=== PATIENT | female | born 1960 | race Caucasian/White ===

== ENCOUNTER 2022-07-13 11:05 | Day surgery (SDC) | payer OTHER ==
[~2022-07-13] VITALS: Ht 160 cm; Wt 108.5 kg
[2022-07-13] VITALS (8 sets, daily range): BP systolic 96–138; BP diastolic 47–76
[~2022-07-13 11:05] MED LIST: MULT-1085 PO; OXYC-145 PO; cefazolin 2gm/D5W 100mL 100 ML IV ONE; famotidine 20mg tablet PO ONE; ringers solution, lacted 1,000 ML IV SCH; tranexamic acid 650mg tablet PO ONE; vancomycin 1,500 MG in NS 300ml IV soln IV ONE
--- NOTE | 2022-07-13 11:20 | NUR ---
CSM: THIS PATIENT WAS NOTABLE TO COME IN FOR PREOP, SHE WAS AN ADD ON. WHEN SHE ARRIVED WE GAVE HER A BROCHURE EXPLAINING THE PROCEDURE. PULSES WERE PRESENT AND MARKED. EDUCATED PATIENT ON THE USE OF THE ON Q PUMP. EDUCATED PATIENT ON THE USE OF THE INCENTIVE SPIROMETER AND ITS IMPORTANCE.
--- NOTE | 2022-07-13 12:00 | NUR ---
PATIENT IS ALLERGIC TO CHLORHEXIDINE, NOT PREP WAS DONE ON THE SHOULDER. PLACED IV WITH NO ISSUES AND STARTED VANCO. EDUCATED PATIENT ON THE SIGNS AND SYMPTOMS OF VANCO.
[2022-07-13 12:17] LABS: BASOPHILS % (AUTO) 0.7 % (0-1); EOSINOPHILS # (AUTO) 0.1 X10'3 (0-0.9); EOSINOPHILS % (AUTO) 2.3 % (0-6); LYMPHOCYTES # (AUTO) 1.7 X10'3 (1.1-4.8); LYMPHOCYTES % (AUTO) 27.5 % (21-51); MEAN CORPUSCULAR HEMOGLOBIN 31.1 PG (27.0-31.0); MEAN CORPUSCULAR HGB CONC 34.2 g/dL (33.0-36.5); MEAN CORPUSCULAR VOLUME 91.2 FL (78-98); MEAN PLATELET VOLUME 7.5 FL (7.4-10.4); MONOCYTES # (AUTO) 0.3 X10'3 (0-0.9); NEUTROPHILS # (AUTO) 4.1 X10'3 (1.8-7.7); NEUTROPHILS % (AUTO) 64.5 % (42-75); PRE OP HEMATOCRIT 35.9 % (35.0-45.0); PRE OP HEMOGLOBIN 12.3 g/dL (12.0-16.0); PRE OP PLATELET COUNT 348 X10'3 (140-440); RED BLOOD COUNT 3.94 X10'6 (4.20-5.60); RED CELL DISTRIBUTION WIDTH 13.7 % (11.5-14.5)
[2022-07-13 12:31] LABS: ALBUMIN 3.7 G/DL (3.4-5.0); ALBUMIN/GLOBULIN RATIO 1.1 (1.1-1.5); ALKALINE PHOSPHATASE 104 IU/L (46-116); BLOOD UREA NITROGEN 11 MG/DL (7-18); BUN/CREATININE RATIO 16.4 (10.0-20.0); CALCIUM 9.2 MG/DL (8.5-10.1); CHLORIDE 105 MMOL/L (99-107); CREATININE 0.67 MG/DL (0.40-0.90); PRE OP ALT 23 U/L (30-65); PRE OP ANION GAP 7 (8-16); PRE OP AST 16 U/L (10-37); PRE OP BILIRUB, TOTAL 0.4 MG/DL (0.0-1.0); PRE OP GLUCOSE 103 MG/DL (70-104); PRE OP POTASSIUM 3.8 MMOL/L (3.4-5.1); PRE OP SODIUM 140 MMOL/L (135-145); TOTAL CARBON DIOXIDE 28.3 MMOL/L (24-32); eGFR 90 ML/MIN
--- NOTE | 2022-07-13 13:15 | NUR ---
PATIENT COMPLAINED OF EXCESS ITCHING DUE TO THE VANCO. STOPPED VANCO AND CALLED THE SURGEON, AND OBTAINED AN ORDER FOR BENADRYL AND RESTARTED VANCO AT A SLOWER RATE. MONITORED VANCO THROUGHOUT THE REST OF HER ORDERED DOSE. NO FURTHER ISSUES.
[2022-07-13] MEDS ORDERED: diphenhydrAMINE 25mg capsule PO STA (13:18)
[2022-07-13] MEDS ORDERED: diphenhydrAMINE 50 mg/ml inj IV PRN (13:25)
[2022-07-13] MEDS ORDERED: ROPIVAcaine 0.5% (5mg/ml) 30ml vial ONE ×2 (14:37→15:08)
[2022-07-13] MEDS ORDERED: ketorolac trometh. 30mg/ml inj. ONE (14:37)
[2022-07-13] MEDS ORDERED: fentaNYL/PF 50MCG/1 ML 2ML syringe ONE ×2 (15:06→17:47)
[2022-07-13] MEDS ORDERED: midazolam 1 mg/ML 2ml injection ONE (15:07)
[2022-07-13] MEDS ORDERED: propofol inj 20 ML IV ONE (15:12)
[2022-07-13] MEDS ORDERED: LIDOcaine 2% (20mg/ml) 5ml vial ONE (15:12)
[2022-07-13] MEDS ORDERED: ondansetron/PF 4mg/2ml inj IV PRN ×2 (15:20→18:35)
[2022-07-13] MEDS ORDERED: ringers solution, lacted 1,000 ML IV SCH (15:20)
[2022-07-13] MEDS ORDERED: fentaNYL/PF 50MCG/1 ML 2ML syringe IV PRN ×2 (15:20)
[2022-07-13] MEDS ORDERED: hydrALAZINE 20mg/ml inj. IV PRN (15:20)
[2022-07-13] MEDS ORDERED: morphine 4 MG/ML inj SYRINge IV PRN (15:20)
[2022-07-13] MEDS ORDERED: morphine 2 MG/ML inj. syringe IV PRN (15:20)
[2022-07-13] MEDS ORDERED: labetalol 20mg/4ml (5mg/ml) syringe IV PRN (15:20)
[2022-07-13] MEDS ORDERED: ROPIVAcaine 0.2% (10 MG/5 ML) BOLUS INJECTION INTERSCALE PRN (15:25)
[2022-07-13] MEDS ORDERED: ROPIVAcaine 0.2%/PF PUMP/bolus 545 ML INTERSCALE SCH (15:25)
[2022-07-13] MEDS ORDERED: sevoflurane 250ml liquid IH ONE (15:55)
[2022-07-13] MEDS ORDERED: dexamethasone sod phosphate 10mg/ml inj ONE (15:55)
[2022-07-13] MEDS ORDERED: ondansetron/PF 4mg/2ml inj ONE (16:37)
[2022-07-13] MEDS ORDERED: ROPIVAcaine 0.5% (5mg/ml) 30ml vial IJ ONE (17:00)
[2022-07-13] MEDS ORDERED: ketorolac trometh. 30mg/ml inj. IM ONE (18:14)
--- NOTE | 2022-07-13 18:28 | NUR ---
+ Received from OR via [facility] , accompanied by Anesthesiologist BINDU and report given by Anesthesiolgist. PATIENT WITH 20G PIV IN LEFT UE RUNNING LR AT 100. PATIENT RIGHT SHOULDER DRESSING IS CDI. SLING ON AND IN PLACE. + RADIAL PULSE PRESENT. DENIES PAIN AT THIS TIME. SCDS DONNED BILATERALLY. ON Q CONNECTED UPON ARRIVAL. + RADIAL PULSE PRESENT. Addendum: 07/13/22 at 1843 by Jose J Grande RN, RN Amended: Links added.
[2022-07-13] MEDS ORDERED: oxyCODONE IR 5mg (immed. release) tablet PO PRN ×2 (18:35)
[2022-07-13] MEDS ORDERED: bisacodyl 10mg suppository rectal RC PRN (18:35)
[2022-07-13] MEDS ORDERED: acetaminophen 325mg tablet PO PRN (18:35)
[2022-07-13] MEDS ORDERED: HYDROmorphone inj. 0.5 MG/0.5 ML DISP.SYRIN IV PRN (18:35)
[2022-07-13] MEDS ORDERED: naloxone 0.4 mg/ml inj IV PRN (18:35)
[2022-07-13] MEDS ORDERED: magnesium hydroxide 30ml (MOM) UD suspension PO PRN (18:35)
[2022-07-13] MEDS ORDERED: diphenhydrAMINE 25mg capsule PO PRN ×2 (18:35)
[2022-07-13] MEDS ORDERED: HYDROmorphone 1 mg/ml syringe IV PRN (18:35)
--- NOTE | 2022-07-13 19:28 | NUR ---
REPORT GIVEN AND ALL QUESTIONS ANSWERED. PATIENT TRANSFERRED TO SURG FLOOR. LABELED BELONGINGS PRESENT WITH SPOUSE AND DELIVERED TO ROOM. RN PRESENT ALL CRITERIA FOR TRANSFER BACK TO THE FLOOR HAS BEEN ACHIEVED. VSS. PAIN AT A TOLERABLE LEVEL. BED LOW, CALL LIGHT PRESENT AND 2 RAILS DOWN. RN AWARE THAT PATIENT HAS ARRIVED. TO ACCEPT CARE OF PATIENT. Addendum: 07/13/22 at 1941 by Jose J Grande RN RN Amended: Links added.
[2022-07-13] MEDS ORDERED: sennosides 8.6mg tablet PO SCH (21:00)
[2022-07-13] MEDS: potassium cl 20mEq in 1/2 NS 1,000 ML IV SCH (22:23)
[2022-07-13] MEDS: acetaminophen 325mg tablet PO SCH (22:25)
[2022-07-13] MEDS: ceFAZolin/D5W- 1GM premix 50 ML IV SCH (23:59)
[2022-07-14] MEDS: acetaminophen 325mg tablet PO SCH ×2 (02:25→08:34)
--- NOTE | 2022-07-14 06:26 | NUR ---
Problems reprioritized. Patient report given, questions answered & plan of care reviewed with HOLLAND Macdonald.
[2022-07-14 06:43] LABS: BASOPHILS % (AUTO) 0.2 % (0-1); EOSINOPHILS % (AUTO) 0 % (0-6); HEMATOCRIT 29.4 % (35.0-45.0); LYMPHOCYTES # (AUTO) 0.9 X10'3 (1.1-4.8); LYMPHOCYTES % (AUTO) 9.5 % (21-51); MEAN CORPUSCULAR HEMOGLOBIN 30.9 PG (27.0-31.0); MEAN CORPUSCULAR HGB CONC 33.9 g/dL (33.0-36.5); MEAN CORPUSCULAR VOLUME 91.3 FL (78-98); MEAN PLATELET VOLUME 7.5 FL (7.4-10.4); MONOCYTES # (AUTO) 0.5 X10'3 (0-0.9); MONOCYTES % (AUTO) 4.9 % (2-12); NEUTROPHILS # (AUTO) 8.3 X10'3 (1.8-7.7); NEUTROPHILS % (AUTO) 85.4 % (42-75); PLATELET COUNT 325 X10'3 (140-440); RED BLOOD COUNT 3.23 X10'6 (4.20-5.60); RED CELL DISTRIBUTION WIDTH 13.6 % (11.5-14.5); WHITE BLOOD COUNT 9.7 X10'3 (4.5-11.0)
[2022-07-14 07:03] LABS: ANION GAP 5 (8-16); CHLORIDE 106 MMOL/L (99-107); POTASSIUM 4.6 MMOL/L (3.5-5.1); SODIUM 138 MMOL/L (135-145); TOTAL CARBON DIOXIDE 26.7 MMOL/L (24-32)
[2022-07-14] MEDS: potassium cl 20mEq in 1/2 NS 1,000 ML IV SCH (07:08)
--- NOTE | 2022-07-14 07:14 | NUR ---
Patient in room MAX 347. I have received report from Val LINO and had the opportunity to ask questions and assume patient care.
[2022-07-14 07:30] VITALS: BP 99/49
[2022-07-14] MEDS ORDERED: multivitamins, therapeutics tablet PO SCH (08:00)
[2022-07-14 08:18] VITALS: BP 101/51
[2022-07-14] MEDS ORDERED: aspirin 325mg tablet PO SCH (08:30)
[2022-07-14] MEDS: ceFAZolin/D5W- 1GM premix 50 ML IV SCH (08:34)
--- NOTE | 2022-07-14 08:40 | NUR ---
Student Medication Administration: For this medication-pass time frame, all medication were reviewed, dispensed, administered and documented per hospital policy by Abril Marino Student nurse and Rosio Radford RN.
[2022-07-14 10:15] VITALS: BP 99/57
--- NOTE | 2022-07-14 10:33 | NUR ---
Received discharge orders, reviewed with patient and , IV removed without incident, cannula intact. Patient wheeled to lobby with belongings.
--- NOTE | 2022-07-14 19:34 | NUR ---
Student documentation: I have reviewed and agree with all interventions, assessments performed and documented by Juan Marino student nurse, by Miladys Radford RN Instructor.
[2022-07-14] MEDS ORDERED: OXYC-150 PO (23:47)
[2022-07-15] MEDS ORDERED: acetaminophen 325mg tablet PO PRN (18:35)
== END 2022-07-14 10:33 | disposition still patient (30) ==
LOC: PAS 11:05 → EDSTATUS 14:00 → SUR 3N 18:00 → UNDOADMIN 18:34 → SUR 3N 18:34 → PAS 07-14 10:33
PROVIDERS: ATTEND Orthopaedic Surgery
DX: S42.291A Other displaced fracture of upper end of right humerus, initial encounter for closed fracture (principal); M75.21 Bicipital tendinitis, right shoulder; E66.01 Morbid (severe) obesity due to excess calories; Z68.41 Body mass index [BMI] 40.0-44.9, adult; M19.90 Unspecified osteoarthritis, unspecified site; G89.18 Other acute postprocedural pain; Z88.1 Allergy status to other antibiotic agents; Z88.5 Allergy status to narcotic agent; Z88.0 Allergy status to penicillin; Z88.2 Allergy status to sulfonamides; Z88.8 Allergy status to other drugs, medicaments and biological substances; Z79.899 Other long term (current) drug therapy; Z72.89 Other problems related to lifestyle; Z98.890 Other specified postprocedural states; Z98.84 Bariatric surgery status; W19.XXXA Unspecified fall, initial encounter; Y93.89 Activity, other specified; Y92.89 Other specified places as the place of occurrence of the external cause; Y99.8 Other external cause status
CPT/HCPCS: 23430; 23472; 36415; 64416; 80051; 80053; 85025; 87081; 97110; 97116; 97161; A6258; C1713; C1776; J0690; J1100; J1200; J1885; J2250; J2405; J2704; J2795; J3010; J3370; J3480; J3490; J7030; J7120; Z7506; Z7508; Z7512; 97530; A4565; A4615; A4618; A7000; G0378

== ENCOUNTER 2022-07-14 20:21 | Emergency (ER) | payer OTHER ==
[~2022-07-14] VITALS: Ht 160 cm; Wt 105.8 kg
[~2022-07-14 20:21] MED LIST changes: -cefazolin 2gm/D5W 100mL 100 ML IV ONE; -famotidine 20mg tablet PO ONE; -ringers solution, lacted 1,000 ML IV SCH; -tranexamic acid 650mg tablet PO ONE; -vancomycin 1,500 MG in NS 300ml IV soln IV ONE
[2022-07-14 20:41] VITALS: BP 100/55
[2022-07-14] MEDS ORDERED: oxyCODONE/APAP 10/325mg tablet PO ONE (23:00)
[2022-07-14] MEDS ORDERED: OXYC-150 PO (23:47)
== END 2022-07-15 00:03 | disposition home or self-care (01) ==
LOC: ER 20:22
DX: M25.511 Pain in right shoulder (principal); G92.9 Unspecified toxic encephalopathy; G89.29 Other chronic pain; M54.9 Dorsalgia, unspecified; Z88.0 Allergy status to penicillin; Z88.2 Allergy status to sulfonamides; Z88.1 Allergy status to other antibiotic agents; Z88.8 Allergy status to other drugs, medicaments and biological substances; Z88.5 Allergy status to narcotic agent; Z79.899 Other long term (current) drug therapy; Z79.1 Long term (current) use of non-steroidal anti-inflammatories (NSAID); Z79.2 Long term (current) use of antibiotics
CPT/HCPCS: 99283

== ENCOUNTER 2023-04-09 05:28 | Day surgery (SDC) | payer OTHER ==
[2023-04-02 15:15] LABS: BASOPHILS % (AUTO) 0.7 % (0-1); EOSINOPHILS # (AUTO) 0.2 X10'3 (0-0.9); EOSINOPHILS % (AUTO) 3.4 % (0-6); LYMPHOCYTES # (AUTO) 2.8 X10'3 (1.1-4.8); LYMPHOCYTES % (AUTO) 37.8 % (21-51); MEAN CORPUSCULAR HEMOGLOBIN 30.7 PG (27.0-31.0); MEAN CORPUSCULAR HGB CONC 33.7 g/dL (33.0-36.5); MEAN PLATELET VOLUME 7.7 FL (7.4-10.4); MONOCYTES # (AUTO) 0.5 X10'3 (0-0.9); MONOCYTES % (AUTO) 6.8 % (2-12); NEUTROPHILS # (AUTO) 3.8 X10'3 (1.8-7.7); NEUTROPHILS % (AUTO) 51.3 % (42-75); PRE OP HEMATOCRIT 36.7 % (35.0-45.0); PRE OP HEMOGLOBIN 12.4 g/dL (12.0-16.0); PRE OP PLATELET COUNT 291 X10'3 (140-440); PRE OP WHITE BLOOD COUNT 7.3 10'3 (4.8-10.8); RED BLOOD COUNT 4.03 X10'6 (4.20-5.60); RED CELL DISTRIBUTION WIDTH 14.2 % (11.5-14.5)
[2023-04-02 15:25] LABS: ALBUMIN 3.5 G/DL (3.4-5.0); ALBUMIN/GLOBULIN RATIO 1.1 (1.1-1.5); ALKALINE PHOSPHATASE 91 IU/L (46-116); BLOOD UREA NITROGEN 10 MG/DL (7-18); BUN/CREATININE RATIO 12.7 (10.0-20.0); CALCIUM 8.6 MG/DL (8.5-10.1); CHLORIDE 104 MMOL/L (99-107); CREATININE 0.79 MG/DL (0.40-0.90); PRE OP ALT 25 U/L (30-65); PRE OP ANION GAP 5 (8-16); PRE OP AST 16 U/L (10-37); PRE OP BILIRUB, TOTAL 0.2 MG/DL (0.0-1.0); PRE OP GLUCOSE 101 MG/DL (70-104); PRE OP POTASSIUM 3.9 MMOL/L (3.4-5.1); PRE OP SODIUM 137 MMOL/L (135-145); TOTAL PROTEIN 6.7 G/DL (6.4-8.2); eGFR 74 ML/MIN
[2023-04-09] VITALS (8 sets, daily range): BP systolic 113–120; BP diastolic 65–72; PULSE 62–81; RESP 12–18; TEMP 98.3; O2SAT 96–100
[~2023-04-09] VITALS: Ht 160 cm; Wt 110.4 kg
[~2023-04-09 05:28] MED LIST changes: +CETI-90 PO; +HYDR-3973 PO; +KEN0.1O TOP; -OXYC-145 PO; +PANT40TA54 PO
[2023-04-09] MEDS: cefazolin 2gm/D5W 100mL 100 ML IV ONE (05:30)
[2023-04-09] MEDS: famotidine 20mg tablet PO ONE (05:51)
[2023-04-09] MEDS: ringers solution, lacted 1,000 ML IV SCH (05:52)
[2023-04-09] MEDS ORDERED: triamcinolone acetonide 40mg/ml inj ONE (06:41)
[2023-04-09] MEDS ORDERED: BUPIVAcaine/PF 2.5mg/ml (0.25%) 10ml vial ONE (06:42)
[2023-04-09] MEDS ORDERED: HYDROmorphone/PF 0.2 MG/ML SYRINGE IV PRN ×2 (07:10)
[2023-04-09] MEDS ORDERED: morphine 4 MG/ML inj SYRINge IV PRN (07:10)
[2023-04-09] MEDS ORDERED: labetalol 20mg/4ml (5mg/ml) syringe IV PRN (07:10)
[2023-04-09] MEDS ORDERED: ondansetron/PF 4mg/2ml inj IV PRN (07:10)
[2023-04-09] MEDS ORDERED: ringers solution, lacted 1,000 ML IV SCH (07:10)
[2023-04-09] MEDS ORDERED: morphine 2 MG/ML inj. syringe IV PRN (07:10)
[2023-04-09] MEDS ORDERED: propofol inj 20 ML IV ONE ×2 (07:16)
[2023-04-09] MEDS ORDERED: fentaNYL/PF 50MCG/1 ML 2ML syringe ONE (07:16)
[2023-04-09] MEDS ORDERED: midazolam 1 mg/ML 2ml injection ONE (07:16)
[2023-04-09] MEDS ORDERED: LIDOcaine 2% (20mg/ml) 5ml vial ONE (07:16)
[2023-04-09] MEDS ORDERED: dexamethasone sod phosphate 4mg/ml inj. ONE (07:16)
[2023-04-09] MEDS ORDERED: LIDOcaine 1% (10mg/ml)w/preservative inj. 20ml MDV ONE (07:17)
[2023-04-09] MEDS ORDERED: sevoflurane 250ml liquid IH ONE (07:20)
[2023-04-09] MEDS ORDERED: HYDROcodone/acetaminophen 10/325mg tab PO PRN (07:25)
[2023-04-09] MEDS ORDERED: ROPIVAcaine 0.5% (5mg/ml) 30ml vial ONE (07:36)
[2023-04-09] MEDS: BUPIVAcaine/PF 2.5mg/ml (0.25%) 10ml vial IJ ONE (07:45)
[2023-04-09] MEDS: triamcinolone acetonide 40mg/ml inj IM ONE (07:45)
== END 2023-04-09 09:00 | disposition home or self-care (01) ==
LOC: PAS 05:28
PROVIDERS: ATTEND Orthopaedic Surgery
DX: S42.291A Other displaced fracture of upper end of right humerus, initial encounter for closed fracture (principal); M75.01 Adhesive capsulitis of right shoulder; E66.01 Morbid (severe) obesity due to excess calories; M19.90 Unspecified osteoarthritis, unspecified site; Z79.891 Long term (current) use of opiate analgesic; Z79.899 Other long term (current) drug therapy; Z96.611 Presence of right artificial shoulder joint; Z98.84 Bariatric surgery status; Z98.891 History of uterine scar from previous surgery; Z98.890 Other specified postprocedural states; Z68.41 Body mass index [BMI] 40.0-44.9, adult; Z88.0 Allergy status to penicillin; Z88.1 Allergy status to other antibiotic agents; Z88.2 Allergy status to sulfonamides; Z88.5 Allergy status to narcotic agent; Z88.8 Allergy status to other drugs, medicaments and biological substances; X58.XXXA Exposure to other specified factors, initial encounter; Y93.89 Activity, other specified; Y92.89 Other specified places as the place of occurrence of the external cause; Y99.8 Other external cause status
CPT/HCPCS: 23700; 36415; 80053; 82948; 85025; 93005; J0690; J1100; J2250; J2704; J2795; J3010; J3301; J3490; J7120; Z7506; Z7512; A4565; A4618

== ENCOUNTER 2023-04-15 13:34 | Inpatient (IN) | payer BC ==
[~2023-04-15] VITALS: Ht 160 cm; Wt 109.1 kg
[2023-04-15 13:57] LABS: BASOPHILS # (AUTO) 0.1 X10'3 (0-0.2); BASOPHILS % (AUTO) 0.6 % (0-1); EOSINOPHILS # (AUTO) 0.1 X10'3 (0-0.9); EOSINOPHILS % (AUTO) 1.5 % (0-6); HEMATOCRIT 39.9 % (35.0-45.0); HEMOGLOBIN 13.3 g/dl (12.0-16.0); LYMPHOCYTES # (AUTO) 1.9 X10'3 (1.1-4.8); LYMPHOCYTES % (AUTO) 20.7 % (21-51); MEAN CORPUSCULAR HEMOGLOBIN 30.3 PG (27.0-31.0); MEAN CORPUSCULAR HGB CONC 33.3 g/dL (33.0-36.5); MEAN CORPUSCULAR VOLUME 91.1 FL (78-98); MEAN PLATELET VOLUME 7.6 FL (7.4-10.4); MONOCYTES # (AUTO) 0.5 X10'3 (0-0.9); MONOCYTES % (AUTO) 5.3 % (2-12); NEUTROPHILS # (AUTO) 6.7 X10'3 (1.8-7.7); NEUTROPHILS % (AUTO) 71.9 % (42-75); PLATELET COUNT 348 X10'3 (140-440); RED BLOOD COUNT 4.38 X10'6 (4.20-5.60); RED CELL DISTRIBUTION WIDTH 14.1 % (11.5-14.5); WHITE BLOOD COUNT 9.3 X10'3 (4.5-11.0)
[2023-04-15 14:15] LABS: ALANINE AMINOTRANSFERASE 20 U/L (12-78); ALBUMIN 3.8 G/DL (3.4-5.0); ALBUMIN/GLOBULIN RATIO 1.1 (1.1-1.5); ALKALINE PHOSPHATASE 92 IU/L (46-116); ANION GAP 11 (8-16); ASPARTATE AMINO TRANSFERASE 17 U/L (10-37); BILIRUBIN,TOTAL 0.3 MG/DL (0.1-1.0); BLOOD UREA NITROGEN 12 MG/DL (7-18); BUN/CREATININE RATIO 14.6 (10.0-20.0); CALCIUM 9.4 MG/DL (8.5-10.1); CHLORIDE 102 MMOL/L (99-107); CREATININE 0.82 MG/DL (0.40-0.90); GLUCOSE 132 MG/DL (70-104); POTASSIUM 3.9 MMOL/L (3.5-5.1); SODIUM 138 MMOL/L (135-145); TOTAL CARBON DIOXIDE 25.4 MMOL/L (24-32); TOTAL PROTEIN 7.3 G/DL (6.4-8.2); eCRCL 60 ML/MIN; eGFR 71 ML/MIN
[2023-04-15 14:21] LABS: PRO BRAIN NATRIURETIC PEPTIDE 108 PG/ML (0-125)
[2023-04-15] MEDS ORDERED: iohexol 350MG/ML 100ml bottle IV ONE (15:02)
[2023-04-15 16:43] LABS: BILIRUBIN,URINE NEGATIVE (Neg); CLARITY,URINE CLEAR (Clear); COLOR,URINE STRAW (Yellow); GLUCOSE, URINE NEGATIVE (Neg); KETONES,URINE TRACE mg/dl (Neg); LEUKOCYTE ESTERASE ,URINE NEGATIVE (Neg); NITRITES, URINE NEGATIVE (Neg); OCCULT BLOOD,URINE NEGATIVE (Neg); PH,URINE 5.5 (4.8-8.0); PROTEIN,URINE NEGATIVE (Neg); UROBILINOGEN,URINE 0.2 E.U/dL (0.2-1.0)
[2023-04-15 16:58] LABS: UA COLLECTION TYPE CLN CATCH MIDSTREAM
[2023-04-15] MEDS ORDERED: aspirin 325mg tablet PO ONE (17:25)
[2023-04-15] MEDS ORDERED: potassium Cl 20 mEq SR tablet PO PRN ×2 (18:10)
[2023-04-15] MEDS ORDERED: morphine 2 MG/ML inj. syringe IV PRN ×2 (18:10)
[2023-04-15] MEDS ORDERED: magnesium hydroxide 30ml (MOM) UD suspension PO PRN (18:10)
[2023-04-15] MEDS ORDERED: magnesium 4gm in 100ml NS 100 ML IV PRN (18:10)
[2023-04-15] MEDS ORDERED: mag hydrox/Alum hydrox/simeth 30ml oral suspension PO PRN (18:10)
[2023-04-15] MEDS ORDERED: magnesium Cl slow-release 64mg tablet PO PRN (18:10)
[2023-04-15] MEDS ORDERED: HYDROcodone/acetaminophen 5mg/325mg tablet PO PRN (18:10)
[2023-04-15] MEDS ORDERED: magnesium 2GM in 50ml NS 50 ML IV PRN (18:10)
[2023-04-15] MEDS ORDERED: potassium Cl 40MEQ/1/2NS 520ml 520 ML IV PRN (18:10)
[2023-04-15] MEDS ORDERED: ondansetron/PF 4mg/2ml inj IV PRN (18:10)
[2023-04-15] MEDS ORDERED: acetaminophen 325mg tablet PO PRN (18:10)
[2023-04-15 18:47] LABS: CHOL/HDL RATIO 3.4 (0.00-4.99); CHOLESTEROL 277 MG/DL (0-200); HDL CHOLESTEROL 81 MG/DL (35-60); LDL CHOLESTEROL 158 MG/DL (50-100); TRIGLYCERIDES 95 MG/DL (20-135)
[2023-04-15 18:57] LABS: HEMOGLOBIN A1C 5.7 % (4.5-6.2)
[2023-04-15] MEDS: K and/or MAG REPLACEMENT MC SCH (20:00)
[2023-04-15] MEDS: docusate sod 100mg capsule PO SCH (20:00)
[2023-04-15 21:45] VITALS: BP 131/75; PULSE 62; RESP 18; TEMP 98.3; O2SAT 95
[2023-04-15 22:30] VITALS: RESP 18; O2SAT 95
[2023-04-16 02:00] VITALS: BP 124/65; PULSE 53; RESP 16; TEMP 97.9; O2SAT 96
[2023-04-16 03:57] VITALS: BP 131/75; PULSE 53; RESP 16; TEMP 97.9; O2SAT 94
[2023-04-16 06:56] VITALS: BP 130/70; PULSE 67; RESP 13; TEMP 98.2; O2SAT 99
[2023-04-16 06:59] LABS: BASOPHILS % (AUTO) 0.5 % (0-1); EOSINOPHILS # (AUTO) 0.1 X10'3 (0-0.9); EOSINOPHILS % (AUTO) 1.8 % (0-6); HEMATOCRIT 38.1 % (35.0-45.0); HEMOGLOBIN 12.7 g/dl (12.0-16.0); MEAN CORPUSCULAR HEMOGLOBIN 30.4 PG (27.0-31.0); MEAN CORPUSCULAR HGB CONC 33.4 g/dL (33.0-36.5); MEAN CORPUSCULAR VOLUME 90.9 FL (78-98); MONOCYTES # (AUTO) 0.4 X10'3 (0-0.9); MONOCYTES % (AUTO) 5.3 % (2-12); NEUTROPHILS % (AUTO) 66.4 % (42-75); PLATELET COUNT 317 X10'3 (140-440); RED BLOOD COUNT 4.19 X10'6 (4.20-5.60); WHITE BLOOD COUNT 7.6 X10'3 (4.5-11.0)
[2023-04-16 07:03] LABS: MAGNESIUM 1.9 MG/DL (1.5-2.4); POTASSIUM 3.8 MMOL/L (3.5-5.1)
[2023-04-16 08:00] VITALS: RESP 16
[2023-04-16] MEDS: K and/or MAG REPLACEMENT MC SCH (08:00)
[2023-04-16] MEDS ORDERED: atorvastatin 10mg tablet PO SCH (08:55)
[2023-04-16] MEDS: docusate sod 100mg capsule PO SCH (09:03)
[2023-04-16 10:00] VITALS: BP 126/72; PULSE 69; RESP 16; TEMP 97.3; O2SAT 99
[2023-04-16] MEDS ORDERED: acetaminophen 325mg tablet PO PRN (11:30)
[2023-04-16] MEDS ORDERED: ASPI-611 PO (16:05)
[2023-04-16] MEDS ORDERED: ATOR20TA66 PO (16:05)
== END 2023-04-16 16:34 | disposition home or self-care (01) | DRG 69 ==
LOC: ER 13:34 → UNDOADMIN 18:10 → ED HOLD 18:10 → EDBEDREQ 20:07 → ORTHO 4S 21:45
PROVIDERS: ADMIT Internal Medicine; ATTEND Internal Medicine
PROC: BW281ZZ Computerized Tomography (CT Scan) of Head using Low Osmolar Contrast (ICD-10-PCS; principal; 2023-04-15)
DX: G45.9 Transient cerebral ischemic attack, unspecified (principal); G43.909 Migraine, unspecified, not intractable, without status migrainosus; Z96.653 Presence of artificial knee joint, bilateral; F10.90 Alcohol use, unspecified, uncomplicated; Z88.1 Allergy status to other antibiotic agents; Z88.2 Allergy status to sulfonamides; Z88.5 Allergy status to narcotic agent; Z79.899 Other long term (current) drug therapy; Z80.8 Family history of malignant neoplasm of other organs or systems
CPT/HCPCS: 36415; 70450; 70496; 70498; 70551; 71045; 72141; 80053; 80061; 81003; 83036; 83735; 83880; 84132; 84484; 85025; 87081; 93880; 99285; G0378; J3490; Q9967